=== PATIENT | female | born 1955 | race African-American/Black ===

== ENCOUNTER 2023-04-23 18:57 | Emergency (ER) | payer OTHER ==
[2023-04-23 19:05] VITALS: TEMP 98.3; BMI 30.7
[2023-04-23 21:43] LABS: BASO % 1.1 % (0-2.0); EOS % 1.4 % (0-4.5); HEMATOCRIT 32.1 % (32.4-45.2); HEMOGLOBIN 10.3 GM/dL (10.7-15.3); LYMPH % 21.4 % (8-40); MCH 27.3 pg (25.7-33.7); MCHC 32.1 g/dl (32.0-36.0); MEAN CELL VOLUME 85.1 fl (80-96); MEAN PLT VOLUME 10.2 fl (7.5-11.1); MONO % 8.4 % (3.8-10.2); NEUT % 67.7 % (42.8-82.8); PLATELET COUNT 262 10^3/uL (134-434); RBC 3.78 M/mm3 (3.60-5.2); RDW 14.6 % (11.6-15.6)
[2023-04-23 22:10] LABS: POTASSIUM 4.9 mmol/L (3.5-5.1)
[2023-04-23 22:12] LABS: ALBUMIN 3.4 g/dl (3.4-5.0); CALCIUM 9.7 mg/dL (8.5-10.1)
[2023-04-23 22:15] LABS: CREATININE 1.6 mg/dL (0.55-1.3)
[2023-04-23 22:17] LABS: BILIRUBIN,TOTAL 0.6 mg/dL (0.2-1); TOT PROT 8.9 g/dl (6.4-8.2)
[2023-04-23 22:42] LABS: BLOOD UREA NITROGEN 30.4 mg/dL (7-18)
[2023-04-23 23:38] VITALS: BP 137/80; PULSE 96; RESP 14
== END 2023-04-24 00:34 | disposition home or self-care (01) ==
LOC: JER 18:57
DX: R10.84 Generalized abdominal pain (principal); R63.0 Anorexia; K59.00 Constipation, unspecified; R06.9 Unspecified abnormalities of breathing; R14.0 Abdominal distension (gaseous)
CPT/HCPCS: 36415; 74176-TC; 80053; 85025; 99284-25